=== PATIENT | female | born 1960 | race Caucasian/White ===

== ENCOUNTER → 2017-12-26 | Outpatient (CLI) | payer BC ==
[~2017-12-26] MED LIST: BEET ROOT PO; CALC1CAP8 PO; CINNAMON PO; CITA20TA9; COLLAGEN PO; GABA300C PO; IBUP-1223; LEVO125T5 PO; MAGNESIUM PO; MELO15TA24 PO; TRAM50TA2 PO; VALA500T4; ZINC PO
== END ==
LOC: STAR 12:10
PROVIDERS: ATTEND Orthopaedic Surgery
DX: Z02.9 Encounter for administrative examinations, unspecified (principal)

== ENCOUNTER 2017-12-30 09:53 | Observation (INO) | payer BC ==
[~2017-12-30] VITALS: Ht 175.3 cm; Wt 74.9 kg
[~2017-12-30 09:53] MED LIST changes: -GABA300C PO
[2017-12-30] MEDS ORDERED: LACTATED RINGERS 1,000 ML IV SCH (10:10)
[2017-12-30] MEDS ORDERED: SCOPOLAMINE PATCH, 1.5MG PATCH.TD72 TD ONE (10:30)
[2017-12-30] MEDS ORDERED: GABAPENTIN 300 MG CAPSULE PO ONE (10:30)
[2017-12-30] MEDS ORDERED: ACETAMINOPHEN 500 MG TABLET PO ONE (10:30)
[2017-12-30] MEDS ORDERED: FENTANYL PF 100 MCG/2ML ONE ×3 (11:25→16:32)
[2017-12-30] MEDS ORDERED: CEFAZOLIN 1,000 MG ONE (11:26)
[2017-12-30] MEDS ORDERED: DEXAMETHASONE 4 MG/ML, 1ML ONE (11:26)
[2017-12-30] MEDS ORDERED: BUPIVACAINE/PF 0.5% ONE ×2 (11:26→13:29)
[2017-12-30] MEDS ORDERED: ONDANSETRON 2MG/ML, 2ML ONE ×2 (11:26→16:34)
[2017-12-30] MEDS ORDERED: PROPOFOL 10 MG/ML, 20ML ONE (11:26)
[2017-12-30] MEDS ORDERED: EPHEDRINE 50 MG/ML, 1ML ONE (12:15)
[2017-12-30] MEDS ORDERED: CLINDAMYCIN PMX 900MG/50ML ONE (12:15)
[2017-12-30] MEDS ORDERED: OXYcodone 5 MG/5 ML ORAL.SOL UDC PO PRN ×2 (13:00→20:00)
[2017-12-30] MEDS ORDERED: ROPIvacaine/PF 0.2%, 100ML 550 ML (check volume) INJ ONE (13:00)
[2017-12-30] MEDS ORDERED: ALBUTEROL/IPRATROPIUM 2.5MG/0.5MG, 3 ML NPPB PRN (13:00)
[2017-12-30] MEDS ORDERED: HYDROmorphone 1 MG/ML, 1ML IV PRN (13:00)
[2017-12-30] MEDS ORDERED: ONDANSETRON 2MG/ML, 2ML IV PRN ×3 (13:00→22:00)
[2017-12-30] MEDS ORDERED: FENTANYL PF 100 MCG/2ML IV PRN (13:00)
[2017-12-30] MEDS ORDERED: KETOROLAC 30 MG/1 ML IV PRN ×2 (13:00→20:00)
[2017-12-30] MEDS ORDERED: PROMETHAZINE 25 MG/ML, 1ML IV PRN (13:00)
[2017-12-30] MEDS ORDERED: DIPHENHYDRAMINE 50 MG/ML, 1ML IVPush PRN ×2 (13:00→20:00)
[2017-12-30] MEDS ORDERED: LABETALOL 5MG/ML, 20ML IV PRN (13:00)
[2017-12-30] MEDS ORDERED: EPHEDRINE 50 MG/ML, 1ML IM PRN (13:00)
[2017-12-30] MEDS ORDERED: TRIAMCINOLONE ACETONIDE 40 MG/ML, 1ML ONE (13:29)
[2017-12-30] MEDS ORDERED: LABETALOL 5MG/ML, 20ML ONE (14:53)
[2017-12-30] MEDS ORDERED: ONDANSETRON ODT 8 MG ONE (16:33)
[2017-12-30] MEDS ORDERED: VANCOMYCIN PMX 1GM/200ML 200 ML IV ONE (20:00)
[2017-12-30 21:17] VITALS: BP 91/49
[2017-12-30] MEDS ORDERED: morphine SULFATE 10 MG/ML, 1ML IV PRN (21:30)
[2017-12-31 00:09] VITALS: BP 95/57
[2017-12-31] MEDS: OXYcodone/APAP 5/325MG TABLET PO PRN ×6 (01:34→23:27)
[2017-12-31 04:09] VITALS: BP 94/51
[2017-12-31] MEDS: LEVOTHYROXINE 125 MCG TABLET PO SCH (05:48)
[2017-12-31 07:08] VITALS: BP 88/50
[2017-12-31] MEDS: CALCIUM/VITAMIN D3 250-125 TABLET PO SCH (10:07)
[2017-12-31] MEDS: MELOXICAM 15 MG TABLET PO SCH ×2 (10:08→10:18)
[2017-12-31 13:45] VITALS: BP 95/57
[2017-12-31] MEDS ORDERED: GABA300C PO (14:00)
[2017-12-31 19:19] VITALS: BP 103/66
[2018-01-01 02:50] VITALS: BP 98/62
[2018-01-01] MEDS: OXYcodone/APAP 5/325MG TABLET PO PRN ×2 (03:28→09:25)
[2018-01-01] MEDS: LEVOTHYROXINE 125 MCG TABLET PO SCH (06:00)
[2018-01-01 07:30] VITALS: BP 106/68
[2018-01-01] MEDS: CALCIUM/VITAMIN D3 250-125 TABLET PO SCH (09:13)
[2018-01-01 11:39] VITALS: BP 107/67
== END 2018-01-01 12:56 | disposition home or self-care (01) ==
LOC: OUT 09:53 → ORIP 18:20 → 4NOR 19:10
PROVIDERS: ADMIT Orthopaedic Surgery; ATTEND Orthopaedic Surgery
DX: M21.6X1 Other acquired deformities of right foot (principal); Q66.22 Congenital metatarsus adductus; M20.10 Hallux valgus (acquired), unspecified foot; M13.80 Other specified arthritis, unspecified site
CPT/HCPCS: 27687; 28296; 28300; 28306; 28308; 73630; 76001; 96365; 96375; G0378; J0690; J1100; J1885; J2405; J2704; J2795; J3010; J3301; J3370; J3490

== ENCOUNTER 2018-08-28 12:45 | Outpatient (CLI) | payer BC ==
[~2018-08-28 12:45] MED LIST changes: +GABA300C PO
== END 2018-08-28 23:59 | disposition home or self-care (01) ==
LOC: STAR 12:45
PROVIDERS: ATTEND Orthopaedic Surgery
DX: Z02.9 Encounter for administrative examinations, unspecified (principal)

== ENCOUNTER 2018-09-01 10:08 | Day surgery (SDC) | payer BC ==
[~2018-09-01] VITALS: Ht 176.5 cm; Wt 80.5 kg
[2018-09-01] MEDS ORDERED: LACTATED RINGERS 1,000 ML IV SCH (10:41)
[2018-09-01] MEDS ORDERED: GABAPENTIN 300 MG CAPSULE PO ONE (11:00)
[2018-09-01] MEDS ORDERED: ACETAMINOPHEN 500 MG TABLET PO ONE (11:00)
[2018-09-01] MEDS ORDERED: SCOPOLAMINE PATCH, 1.5MG PATCH.TD72 TD ONE (11:00)
[2018-09-01 11:11] VITALS: BP 117/74
[2018-09-01] MEDS ORDERED: OXYC5CAP2 PO (11:18)
[2018-09-01] MEDS ORDERED: LIDOCAINE 1%, 20ML ONE (11:51)
[2018-09-01] MEDS ORDERED: BUPIVACAINE/PF 0.5% ONE (11:51)
[2018-09-01] MEDS ORDERED: MIDAZOLAM 1 MG/ML, 2ML ONE (12:00)
[2018-09-01] MEDS ORDERED: FENTANYL PF 250 MCG/5ML ONE (12:00)
[2018-09-01] MEDS ORDERED: DEXAMETHASONE 4 MG/ML, 5ML ONE ×2 (12:30→13:22)
[2018-09-01] MEDS ORDERED: TRIAMCINOLONE ACETONIDE 40 MG/ML, 1ML ONE (12:30)
[2018-09-01] MEDS ORDERED: CLINDAMYCIN 150 MG/ML, 6ML ONE (12:41)
[2018-09-01] MEDS ORDERED: GLYCOPYRROLATE 0.2MG/1ML, 5ML ONE (13:22)
[2018-09-01] MEDS ORDERED: ONDANSETRON 2MG/ML, 2ML ONE ×2 (13:22→16:43)
[2018-09-01] MEDS ORDERED: LIDOCAINE-MPF 2% ,5ML ONE (13:22)
[2018-09-01] MEDS ORDERED: EPHEDRINE 50 MG/ML, 1ML ONE (13:22)
[2018-09-01] MEDS ORDERED: PROPOFOL 10 MG/ML, 20ML ONE ×2 (13:22→16:43)
[2018-09-01] MEDS ORDERED: ONDANSETRON ODT 8 MG PO PRN (13:30)
[2018-09-01] MEDS ORDERED: ONDANSETRON 2MG/ML, 2ML IV PRN (13:30)
[2018-09-01] MEDS ORDERED: MEPERIDINE/PF 25MG/0.5ML IVPush PRN (13:30)
[2018-09-01] MEDS ORDERED: OXYcodone 5 MG/5 ML ORAL.SOL UDC PO PRN (13:30)
[2018-09-01] MEDS ORDERED: FENTANYL PF 100 MCG/2ML IV PRN (13:30)
[2018-09-01] MEDS ORDERED: HYDROmorphone 2 MG/ML, 1ML IVPush PRN (13:30)
[2018-09-01] MEDS ORDERED: PROMETHAZINE 25 MG/ML, 1ML IV PRN (13:30)
[2018-09-01] MEDS ORDERED: FENTANYL PF 100 MCG/2ML ONE (14:52)
[2018-09-01] MEDS ORDERED: OXYcodone 5 MG/5 ML ORAL.SOL UDC ONE (14:52)
[2018-09-01] MEDS ORDERED: CEFAZOLIN 1,000 MG ONE (16:43)
== END 2018-09-01 17:05 | disposition home or self-care (01) ==
LOC: OUT 10:08
PROVIDERS: ATTEND Orthopaedic Surgery
DX: M20.11 Hallux valgus (acquired), right foot (principal); M79.672 Pain in left foot; F17.210 Nicotine dependence, cigarettes, uncomplicated; Z88.8 Allergy status to other drugs, medicaments and biological substances
CPT/HCPCS: 20605; 28750; 64445; 64447; 73620; 73660; 76000; C1713; J0690; J1100; J2250; J2405; J2704; J3010; J3301; J3490; J7120